=== PATIENT | female | born 1975 | race Caucasian/White ===

== ENCOUNTER 2021-10-29 13:34 | Observation (INO) ==
[2021-10-29 14:40] LABS: Bilirubin,Urine Negative (Negative); Blood,Urine Negative (Negative); Clarity,Urine Clear (Clear); Color,Urine Light-Yellow (Yellow); Glucose,Urine (UA) Normal (Normal); Ketones,Urine 10 mg/dL (Negative); Leukocyte Esterase,Urine Negative (Negative); Nitrite,Urine Negative (Negative); PH,Urine 6.5 pH Units (5.0-8.0); Protein,Urine Negative (Neg-Trace); Specific Gravity,Urine 1.023 (1.010-1.025); Urobilinogen,Urine Normal (Normal)
[2021-10-29 14:53] LABS: Basophils # 0.1 K/mcL (0.0-0.2); Basophils % 0.5 %; Eosinophils # 0.1 K/mcL (0.0-0.6); Eosinophils % 1.3 %; Hematocrit 39.9 % (35.3-44.9); Hemoglobin 12.7 g/dL (11.5-15.4); Immature Granulocytes % 0.4 % (0-4); Lymphocytes # 1.2 K/mcL (0.6-4.6); Mean Corpuscular HGB Conc 31.8 g/dL (31.6-35.5); Mean Corpuscular Hemoglobin 28.9 pg (28.0-33.3); Mean Corpuscular Volume 90.7 fL (83.0-100.0); Mean Platelet Volume 10.1 fL (9.4-12.4); Monocytes # 0.5 K/mcL (0.0-1.3); Neutrophils # 8.8 K/mcL (1.6-8.9); Platelet Count 261 K/mcL (140-400); Red Cell Distribution Width 12.6 % (11.5-14.5); Segmented Neutrophils % 81.8 %; White Blood Count 10.8 K/mcL (4.3-11.1)
[2021-10-29 15:05] LABS: Alanine Aminotransferase 11 Units/L (7-52); Albumin 4.4 g/dL (3.5-5.7); Albumin/Globulin Ratio 1.4 (1.1-2.2); Alkaline Phosphatase 42 Units/L (34-104); Amylase 43 Units/L (29-103); Aspartate Amino Transferase 16 Units/L (13-39); BUN/Creatinine Ratio 17 (6-26); Bilirubin,Direct 0.1 mg/dL (0.0-0.2); Bilirubin,Indirect 0.5 mg/dL (0.0-1.0); Bilirubin,Total 0.6 mg/dL (0.3-1.0); Blood Urea Nitrogen 14 mg/dL (6-20); Calcium 9.5 mg/dL (8.6-10.3); Carbon Dioxide 25 mEq/L (23-29); Chloride 101 mEq/L (98-107); Globulin 3.2 g/dL (2.4-3.5); Glucose 89 mg/dL (70-105); Lipase 21 Units/L (11-82); Osmolality,Calculated 282 (280-300); Potassium 3.7 mEq/L (3.5-5.1); Sodium 136 mEq/L (136-145); Total Protein 7.6 g/dL (6.4-8.9); eGFR For African Americans > 60 (> 60); eGFR For Non-African Americans > 60 (> 60)
[2021-10-29] MEDS ORDERED: Ondansetron 4 MG/2 ML VIAL IVP ONE (16:06)
[2021-10-29] MEDS ORDERED: *HR* FentaNYL (PF) 100 MCG/2 ML VIAL IVP ONE (16:06)
[2021-10-29] MEDS ORDERED: Piperacillin/Tazobactam 3.375 GM in 0.9 % Sodium Chloride Mini Bag 100 ML IVPB STA (16:28)
[2021-10-29] MEDS ORDERED: *HR* Labetalol 20 MG/4 ML SYRINGE IVP PRN (17:59)
[2021-10-29] MEDS ORDERED: Acetaminophen IV 1,000 MG/100 ML BAG IVPB ONE ×2 (17:59→18:48)
[2021-10-29] MEDS ORDERED: *HR* HYDROmorphone (PF) 1 MG/ML SYRINGE IVP PRN (17:59)
[2021-10-29] MEDS ORDERED: *HR* OxyCODONE Immed Rel 5 MG TABLET PO PRN (17:59)
[2021-10-29] MEDS ORDERED: *HR* Promethazine 25 MG/ML VIAL IVPB PRN (17:59)
[2021-10-29] MEDS ORDERED: Famotidine 20 MG/2 ML VIAL IVP ONE (17:59)
[2021-10-29] MEDS ORDERED: *HR* HYDROmorphone 2 MG TABLET PO PRN (17:59)
[2021-10-29] MEDS ORDERED: *HR* Propofol 200 MG/20 ML VIAL IVP ONE (18:16)
[2021-10-29] MEDS ORDERED: *HR* FentaNYL (PF) 100 MCG/2 ML VIAL ONE ×2 (18:16→18:42)
[2021-10-29] MEDS ORDERED: Lidocaine -MPF 4% 5 ML AMPUL ONE (18:16)
[2021-10-29] MEDS ORDERED: Lidocaine -MPF 2% 5 ML VIAL ONE (18:16)
[2021-10-29] MEDS ORDERED: *HR* Rocuronium Bromide 50 MG/5 ML VIAL ONE (18:16)
[2021-10-29] MEDS ORDERED: Ondansetron 4 MG/2 ML VIAL ONE (18:16)
[2021-10-29] MEDS ORDERED: *HR* Succinylcholine 200 MG/10 ML VIAL IVP ONE (18:16)
[2021-10-29] MEDS ORDERED: Ketorolac 30 MG/ML VIAL IVP PRN (19:09)
[2021-10-29] MEDS ORDERED: *HR* OxyCODONE/APAP 5/325 TABLET PO PRN (19:09)
[2021-10-29] MEDS ORDERED: Ibuprofen 600 MG TABLET PO PRN (19:09)
[2021-10-29] MEDS ORDERED: Ondansetron 4 MG/2 ML VIAL IVP PRN (19:09)
[2021-10-30] MEDS: Piperacillin/Tazobactam 3.375 GM in 0.9 % Sodium Chloride Mini Bag 100 ML IVPB SCH ×2 (00:24→07:15)
[2021-10-30 01:29] LABS: Basophils % 0.1 %; Hematocrit 37.2 % (35.3-44.9); Hemoglobin 12.4 g/dL (11.5-15.4); Immature Granulocytes % 0.7 % (0-4); Lymphocytes # 0.6 K/mcL (0.6-4.6); Lymphocytes % 5.2 %; Mean Corpuscular HGB Conc 33.3 g/dL (31.6-35.5); Mean Corpuscular Hemoglobin 29.5 pg (28.0-33.3); Mean Corpuscular Volume 88.6 fL (83.0-100.0); Mean Platelet Volume 10.2 fL (9.4-12.4); Monocytes # 0.1 K/mcL (0.0-1.3); Monocytes % 0.9 %; Neutrophils # 11.2 K/mcL (1.6-8.9); Platelet Count 254 K/mcL (140-400); Red Cell Distribution Width 12.6 % (11.5-14.5); Segmented Neutrophils % 93.1 %
[2021-10-30 06:42] VITALS: BP 100/66
[2021-10-30 10:29] VITALS: PULSE 77; TEMP 98.2; O2SAT 94
== END 2021-10-30 12:34 | disposition home or self-care (01) ==
LOC: 3ANU 13:34 → EMEROOARM 13:34 → 3ANU 17:37
PROVIDERS: ADMIT Surgery; ATTEND Surgery